=== PATIENT | female | born 1995 | race Caucasian/White ===

== ENCOUNTER 2018-08-12 01:52 | Emergency (ER) | payer OTHER ==
[2018-08-12] MEDS ORDERED: NS 1,000 ML IV ONE (01:55)
--- NOTE | 2018-08-12 01:57 | EDPHY ---
H & P Time Seen by Provider: 08/12/18 01:55 HPI/ROS: HPI CHIEF COMPLAINT: Possible seizure, alcohol this evening HISTORY OF PRESENT ILLNESS: Patient is a 22-year-old female, she has a history of epilepsy and takes Keppra, she presents emergency room by EMS for possible concern of seizure. The patient states she is confused does not remember exactly what happened. She did have 3 alcoholic beverages tonight. She denies any chest pain or shortness of breath. Denies fever. Patient denies recent illness. Past Medical History: Epilepsy on Keppra Past Surgical History: No recent surgery Social History: 3 alcoholic beverages tonight. Family History: Noncontributory ROS REVIEW OF SYSTEMS: 10 Systems were reviewed and negative with the exception of the elements mentioned in the history of present illness. Exam Constitutional appears well nontoxic no acute distress, triage nursing summary reviewed, vital signs reviewed, awake/alert. Eyes normal conjunctivae and sclera, EOMI, PERRLA. HENT normal inspection, atraumatic, moist mucus membranes, no epistaxis, neck supple/ no meningismus, no raccoon eyes. Respiratory clear to auscultation bilaterally, normal breath sounds, no respiratory distress, no wheezing. Cardiovascular rate normal, regular rhythm, no murmur, no edema, distal pulses normal. Gastrointestinal soft, non-tender, no rebound, no guarding, normal bowel sounds, no distension, no pulsatile mass. Genitourinary no CVA tenderness. Musculoskeletal no midline vertebral tenderness, full range of motion, no calf swelling, no tenderness of extremities, no meningismus, good pulses, neurovascularly intact. Skin pink, warm, & dry, no rash, skin atraumatic. Neurologic awake, alert and oriented x 3, AAOx3, moves all 4 extremities equally, motor intact, sensory intact, CN II-XII intact, normal cerebellar, normal vision, normal speech. Psychiatric normal mood/affect. Heme/Lymph/Immune no lymphadenopathy. Differential Diagnosis: Includes but is not limited to in a particular order epilepsy, breakthrough seizure, electrolyte disturbance, alcohol intoxication. Medical Decision Making: Plan for this patient IV establishment with blood draw , check electrolytes, gentle IV fluids, leadership program associate, watch for further seizures. Re-evaluation: Serum alcohol level 165 at 2:29 a.m.. 0427: Patient is alert and oriented, answers my questions appropriately no acute distress. She is clinically sober. No further seizure activity here in the emergency room. Father is at bedside would like to take her home. She is safe for discharge. I do recommend she is very careful about how much alcohol she drinks given that she has seizure disorder. She understands and is comfortable this plan. Source: Patient, EMS - Personal History Tetanus Vaccine Date: 2007 Constitutional: Initial Vital Signs Temperature (C) 36.8 C 08/12/18 01:55 Heart Rate 88 08/12/18 01:55 Respiratory Rate 18 08/12/18 01:55 Blood Pressure 134/87 H 08/12/18 01:55 O2 Sat (%) 98 08/12/18 01:55 O2 Delivery Mode Room Air Allergies/Adverse Reactions: Latex, Natural Rubber Allergy (Unknown, Verified 04/11/13 21:48) prednisone Allergy (Unknown, Verified 04/11/13 21:48) acetaminophen [From Percocet] Allergy (Verified 08/12/18 02:03) oxycodone [From Percocet] Allergy (Verified 08/12/18 02:03) Home Medications: Medication Instructions Recorded Albuterol Sulfate [Proventil Hfa] 1 - 2 puffs IH Q4 PRN 03/07/13 Phenylephrine HCl [Sudafed PE] 10 mg PO DAILY 03/07/13 Lexapro 04/11/13 Keppra Xr 08/12/18 VYVANSE 08/12/18 Medical Decision Making - Data Points Laboratory Results: Laboratory Results 08/12/18 01:55 08/12/18 01:55 08/12/18 08/12/18 08/12/18 01:55 01:55 01:55 WBC 6.42 10^3/uL 10^3/uL (3.80-9.50) RBC 5.17 10^6/uL 10^6/uL (4.18-5.33) Hgb 15.8 g/dL g/dL (12.6-16.3) Hct 43.5 % % (38.0-47.0) MCV 84.1 fL fL (81.5-99.8) MCH 30.6 pg pg (27.9-34.1) MCHC 36.3 g/dL g/dL (32.4-36.7) RDW 12.1 % % (11.5-15.2) Plt Count 469 10^3/uL H 10^3/uL (150-400) MPV 9.8 fL fL (8.7-11.7) Neut % (Auto) 42.4 % % (39.3-74.2) Lymph % (Auto) 42.1 % % (15.0-45.0) [place] % (Auto) 14.0 % H % (4.5-13.0) Eos % (Auto) 0.6 % % (0.6-7.6) Baso % (Auto) 0.6 % % (0.3-1.7) Nucleat RBC Rel Count 0.0 % % (0.0-0.2) Absolute Neuts (auto) 2.72 10^3/uL 10^3/uL (1.70-6.50) Absolute Lymphs (auto) 2.70 10^3/uL 10^3/uL (1.00-3.00) Absolute Monos (auto) 0.90 10^3/uL H 10^3/uL (0.30-0.80) Absolute Eos (auto) 0.04 10^3/uL 10^3/uL (0.03-0.40) Absolute Basos (auto) 0.04 10^3/uL 10^3/uL (0.02-0.10) Absolute Nucleated RBC 0.00 10^3/uL 10^3/uL (0-0.01) Immature Gran % 0.3 % % (0.0-1.1) Immature Gran # 0.02 10^3/uL 10^3/uL (0.00-0.10) Sodium 142 mEq/L mEq/L (135-145) Potassium 3.9 mEq/L mEq/L (3.5-5.2) Chloride 108 mEq/L mEq/L (97-110) Carbon Dioxide 19 mEq/l L mEq/l (22-31) Anion Gap 15 mEq/L H mEq/L (6-14) BUN 11 mg/dL mg/dL (7-23) Creatinine 0.9 mg/dL mg/dL (0.6-1.0) Estimated GFR > 60 Glucose 84 mg/dL mg/dL (70-100) Calcium 9.6 mg/dL mg/dL (8.5-10.4) Beta HCG, Qual NEGATIVE Ethyl Alcohol 165 mg/dL H mg/dL (0-10) Medications Given: Discontinued Medications Sodium Chloride (Ns) 1,000 mls @ 0 mls/hr IV EDNOW ONE; Wide Open PRN Reason: Protocol Stop: 08/12/18 01:56 Last Admin: 08/12/18 02:17 Dose: 1,000 mls Departure - Departure Disposition: Home, Routine, Self-Care Clinical Impression: Alcohol intoxication Condition: Good Instructions: Alcohol Intoxication (ED) Referrals: Patient,NotPresent [Unknown] - As per Instructions
[2018-08-12 02:08] LABS: PLATELET COUNT 469 10^3/uL (150-400)
[2018-08-12 04:37] VITALS: BP 110/78
== END 2018-08-12 04:37 | disposition home or self-care (01) ==
LOC: EDUNIT#
DX: F10.920 Alcohol use, unspecified with intoxication, uncomplicated (principal); G40.909 Epilepsy, unspecified, not intractable, without status epilepticus; E86.9 Volume depletion, unspecified
CPT/HCPCS: G0480